=== PATIENT | male | born 1945 | race Caucasian/White ===

== ENCOUNTER → 2018-07-18 | Outpatient (CLI) | payer OTHER ==
--- NOTE | 2018-07-18 22:03 | XCELERA REPORT ---
[address] [address] Transthoracic Echocardiogram Report Name: SAGAR CHEN Age: 72 yrs Gender: Male : 1945 Patient Status: Outpatient Patient Location: RAD Study Date: 07/18/2018 08:56 AM Height: 72 in Weight: 218 lb BSA: 2.2 m2 Reason For Study: SVT Ordering Physician: KAYODE LYON Performed By: Yared Rollins Interpretation Summary Mild AV sclerosis, no , no AR. No MVP, no MS, trace MR physiological. Normal LA size. Normal LV thickness, normal LVEF60%, RWMA confined to anterior and inferoseptal wall only, no LV enlargement, LVESD is 35mm RH is normal. Upper normal RVSP. MMode/2D Measurements & Calculations RVDd: 3.8 cm LVIDd: 5.5 cm FS: 33.6 % Ao root diam: 2.9 cm IVSd: 0.86 cm LVIDs: 3.6 cm EDV(Teich): Ao root area: LVPWd: 0.94 cm 147.3 ml ESV(Teich): 56.2 ml6.4 cm2 LA dimension: 3.8 cm EF(Teich): 61.8 % LVLd ap4: 7.6 cm SV(MOD-sp4): EDV(MOD-sp4): 56.0 ml 90.0 ml LVLs ap4: 6.1 cm ESV(MOD-sp4): 34.0 ml EF(MOD-sp4): 62.2 % Doppler Measurements & Calculations MV E max pamela: MV P1/2t max pamela: Ao V2 max: LV V1 max P.6 cm/sec 59.7 cm/sec 119.4 cm/sec 3.5 mmHg MV A max pamlea: MV P1/2t: 71.3 msec Ao max PG: LV V1 max: 52.6 cm/sec 5.7 mmHg 94.1 cm/sec MV E/A: 1.1 MVA(P1/2t): 3.1 cm2 MV dec slope: 245.2 cm/sec2 MV dec time: 0.29 sec PA V2 max: PI end-d pamela: TR max pamela: MV P1/2t-pr_phl: 135.4 cm/sec 131.7 cm/sec 257.9 cm/sec 71.3 msec PA max PG: TR max P.3 mmHg 26.6 mmHg Left Ventricle The left ventricle is normal in size. There is normal left ventricular wall thickness. The left ventricular ejection fraction is normal. LV EF is 60%. Doppler measurements suggest normal left ventricular diastolic function. There is anterior wall mild hypokinesis. There is inferoseptal wall mild hypokinesis. There is no thrombus. Right Ventricle The right ventricle is normal in size, thickness and function. The right ventricular systolic function is normal. Atria The right atrium is normal. The left atrial size is normal. The interatrial septum is intact with no evidence for an atrial septal defect. Mitral Valve The mitral valve is normal in structure and function. There is no vegetation seen on the mitral valve. There is no evidence of mitral valve prolapse. There is no mitral valve stenosis. There is a trace amount of mitral regurgitation. Aortic Valve The aortic valve opens well. The aortic valve is trileaflet. There is no aortic valvular vegetation. There is no aortic valve stenosis. No aortic regurgitation is present. Tricuspid Valve The tricuspid valve is not well visualized secondary to technical limitations. There is no tricuspid stenosis. Right ventricular systolic pressure is estimated to be within upper limit of normal. Pulmonic Valve The pulmonic valve is not well visualized. There is a mild amount of pulmonic regurgitation. Great Vessels There is aortic root sclerosis/calcification. Effusions Minimal pericardial effusion. I WMSI = 1.38 % Normal = 63 Segments Size X - Cannot 2 - 4 - 1-2 small Interpret 1 - Normal Hypokinetic 3 - AkineticDyskinetic 3-5 moderate 5 - 6-14 large Aneurysmal 15-16 diffuse : KAYODE LYON > Rishi Cai
== END ==
LOC: RAD 09:57
PROVIDERS: ATTEND Family Medicine
DX: I47.1 Supraventricular tachycardia (principal)
CPT/HCPCS: 93306